=== PATIENT | male | born 1955 | race Caucasian/White ===

== ENCOUNTER 2018-01-07 10:48 | Emergency (ER) | payer MEDICAID ==
[~2018-01-07] VITALS: Ht 170.1 cm; Wt 68.0 kg
[~2018-01-07 10:48] MED LIST: ASPIRIN325 M2 PO; FISH OIL1000 MG PO; LIPITOR10 MG PO; LISINOPRIL5 MG PO; MELOXICAM15 MG PO; NORCO 10-325 T1 EACH PO
[2018-01-07] MEDS ORDERED: LOSARTAN POTASS50 M1 PO (10:49)
[2018-01-07] MEDS ORDERED: TRAZODONE50 MG PO (10:49)
[2018-01-07] MEDS ORDERED: AMITRIPTYLINE50 MG PO (10:50)
[2018-01-07] MEDS ORDERED: ROSUVASTATIN CA20 MG PO (10:50)
== END 2018-01-07 12:04 | disposition home or self-care (01) ==
LOC: ED 10:48
DX: Z02.83 Encounter for blood-alcohol and blood-drug test (principal); Z79.899 Other long term (current) drug therapy; Z79.82 Long term (current) use of aspirin; Z88.1 Allergy status to other antibiotic agents